=== PATIENT | male | born 1940 | race Caucasian/White ===

== ENCOUNTER 2021-06-18 09:42 | Outpatient (CLI) | payer MEDICARE, SELFPAY ==
--- NOTE | 2021-06-18 10:50 | ECG_ITS ---
Measurements Intervals [place] Rate: 58 P: 33 ME: 254 QRS: -27 QRSD: 112 T: 4 QT: 399 QTc: 393 Interpretive Statements SINUS BRADYCARDIA WITH SINUS ARRHYTHMIA WITH FIRST DEGREE AV BLOCK INTRAVENTRICULAR CONDUCTION DELAY VOLTAGE CRITERIA FOR LVH POOR R WAVE PROGRESSION, ANTERIOR LEADS BASELINE ARTIFACT- I, II, III, AVR, AVL, AVF, V1-V3 ABNORMAL ECG Electronically Signed On 06-18-2021 12:54:21 BODY TRIMMER UPHOLSTERER by Jose Dupont D.O.
[2021-06-18 11:24] LABS: Albumin Level 4.6 g/dL (3.5-5.1); Estimated Glomerular Filt Rate > 60; Glucose 96 mg/dL (65-110)
[2021-06-18 11:25] LABS: Urine Cotinine NEGATIVE
[2021-06-18 11:26] LABS: Hematocrit 42.5 % (42.0-52.0); Hemoglobin 14.8 g/dL (14.0-18.0)
[2021-06-18 11:28] LABS: Hemoglobin A1C 5.3 % (<5.7)
== END 2021-06-18 09:43 | disposition home or self-care (01) ==
PROVIDERS: PCP Family Medicine Sports Medicine; Visit Provider Specialist
DX: M25.552 Pain in left hip (principal); Z01.818 Encounter for other preprocedural examination; I45.9 Conduction disorder, unspecified; R94.31 Abnormal electrocardiogram [ECG] [EKG]
CPT/HCPCS: 80307; 82040; 82565; 82947; 83036; 85014; 85018; 93005

== ENCOUNTER 2021-07-03 14:23 | Observation (INO) | payer MEDICARE, SELFPAY ==
--- NOTE | 2021-06-18 09:50 | PC.NURSE ---
Report to the Outpatient Waiting Room, entrance under the green pavilion located off [facility], at time __10:00AM__ on date 07/02/21 . OR Time: ___12:00PM . - You and your visitor will be asked a series of questions to screen for COVID 19 for your protection. - A mask is required within the hospital. - Only one visitor is allowed at this time. Patient visitors will be guided where to wait when not with patient. Preoperative COVID Testing Requirements: No COVID Test needed if: (proof is required; if not received patient will have Rapid Test prior to entry) - Patient has received COVID Vaccine at least 14 days prior to procedure date or - Patient has positive COVID test result within last 90 days of surgery date. COVID Test needed if above criteria is not met If not COVID vaccinated a COVID test must be conducted within 72 hours of surgery and patient is asked to isolate self from time of testing until procedure. You will go to the [facility] Testing Site for your COVID testing. The [facility] [employer] [facility] is located at the corner of [address] [facility]. You will only be called if COVID results are positive and your surgeon may reschedule your elective surgery date. Patients may have clear liquids (water, carbonated beverages, clear teas, apple juice) until 3 hours prior to surgery with a maximum of 20 ounces. - No food from midnight until time of surgery 9:00AM - Infants may have breast milk until 4 hours before surgery, infant formula 6 hours prior to surgery. - Children will be allowed to drink immediately following surgery. If applicable, please bring a bottle or sippy cup to assist with drinking. Juice, water, soda, and popsicles are readily available. For infants on formula, please bring formula the day of surgery. Pacifiers are allowed. Take the following medications with a SIP of water the morning of surgery: AMLODIPINE Medications to discontinue per physician ALL VITAMINS/SUPPLEMENTS 3 DAYS PRE-OP, HOLD ALEVE PER MD Date to take last dose 06/28/21 Please no make-up, nail setswana, hairspray, perfume, deodorant, or body powder the day of surgery. No jewelry (including any body piercings) or valuables the day of surgery, leave them at home. Please take a shower or bath the night before, or the morning of, surgery with an antibacterial soap. Wear comfortable, loose fitting clothing. Children are encouraged to wear pajamas. - Jewelry must be removed prior to entering the operating room. Rings and piercings that are not removed may be cut off. - The hospital will not accept responsibility for valuables. - Please leave all valuables, including medications, at home the day of surgery. If you are going home after surgery, a licensed wheelchair van driver must drive you home. - NO public transportation without another adult. - We recommend that an adult stay with you for 24 hours following discharge. - We also recommend that you do not drive, make important decision, drink alcoholic beverages, or take any drugs that were not prescribed by your health care provider for at least 24 hours after your discharge time. For Pediatric surgeries, we recommend two adults accompany the child home (only one inside the building at this time). Follow any additional instructions given to you from your surgeon. Telephone instructions given to ___PATIENT & FRIEND and asked if any additional questions and then verbalized understanding. Patient advised to call surgeon office or pre surgery nurse liaison [phone] if any additional questions.
[2021-06-18 10:04] VITALS: BP 154/83; PULSE 63; RESP 18; TEMP 36.6; O2SAT 97; BMI 25.3
[2021-07-02] VITALS (17 sets, daily range): BP systolic 141–173; BP diastolic 62–84; PULSE 55–81; RESP 10–18; TEMP 36.2–36.7; O2SAT 91–100
[2021-07-02] MEDS: ACETAMINOPHEN 500 MG TABLET 1000 MG PO (10:21)
[2021-07-02] MEDS: LACTATED RINGERS 1,000 ML 30 ML IV CONT (10:38)
[2021-07-02] MEDS: TRANEXAMIC ACID 1,000MG/ISO100 1,000 MG/100 ML BAG 200 MG IVPB (10:54)
--- NOTE | 2021-07-02 11:27 | SUR.PREOP ---
pt informed slight delay in procedure
--- NOTE | 2021-07-02 11:36 | WPDANESEPPF ---
Anes - Initial Pre Proc Eval Procedure: Operation Date: 07/02/21 12:00 Proposed Procedures p Left Total Hip Arthroplasty - Ashutosh Soto MD Date/Time: 07/02/21 11:36 Surgeon: Ashutosh Soto MD Pre Op Diagnosis: Left Hip Pain Patient Data Age: 80 Gender: M Height: 1.88 m Weight: 88.4 kg Last Vital Signs Temp 36.5 C 07/02/21 10:40 Pulse 68 07/02/21 10:40 Resp 16 07/02/21 10:40 BP 152/72 H 07/02/21 10:40 Pulse Ox 98 07/02/21 10:40 Allergies Allergy/AdvReac Type Severity Reaction Status Date / Time No Known Allergies Allergy Unverified 07/02/21 10:15 Home Medications Medication Instructions Recorded Confirmed Type amlodipine 5 mg PO QAM 06/18/21 07/02/21 History atorvastatin 10 mg PO DAILY 06/18/21 07/02/21 History finasteride 5 mg PO DAILY 06/18/21 07/02/21 History memantine 10 mg PO DAILY 06/18/21 07/02/21 History multivitamin [Multiple Vitamin] 1 tablet PO DAILY 06/18/21 07/02/21 History naproxen sodium [Aleve] 440 mg PO BID PRN 06/18/21 07/02/21 History tamsulosin 0.4 mg PO DAILY 06/18/21 07/02/21 History Patient hx anesthesia problems: none Family hx anesthesia problems: none Results Review: All pre-operative results and documents have been reviewed as part of the pre-operative evaluation. [facility] Past Medical History Medical History Dementia Hyperlipidemia Hypertension Social History Social History Smoking packs per day: 0.5 Smoking cigarettes per day: 10.0 Years smoked: 10 Smoking pack-years: 5.00 Smoking status: Former smoker Tobacco type: cigarettes Smoking end date: 02/01/70 Alcohol intake: current Drinks per week: 6 Substance use: never Living arrangements: alone Spiritual care concerns: No Anes - Eval Final PreProcedure Day of Procedure 07/02/21 11:36 Patient weight: normal Heart: regular rate and rhythm Lungs: clear to auscultation Airway: Mallampati scale class II Neurological: other (alert) Last oral intake: >/= 8 hours ASA classification: III Emergent: no Anesthetic plan: proceed Anesthesia type and monitoring: general ETT and standard monitoring Results Review: All pre-operative results and documents have been reviewed as part of the pre-operative evaluation. Informed Consent: The patient's anesthetic plan and its attendant risks and benefits were discussed with the patient/family/POA. Questions were solicited and answers provided to the satisfaction of the patient/family/POA.
--- NOTE | 2021-07-02 12:01 | WPDHPUPDATE1 ---
History and Physical Update Update Date/Time: 07/02/21 12:01 History and Physical has been reviewed, including an updated exam of the patient. There are NO changes in the patient's condition. Risks, benefits, and alternatives have been discussed and questions answered. Patient agrees to proceed with procedure.
[2021-07-02] MEDS: ceFAZolin 2 GM/D5W 50 ML 2 GM/50 ML BAG IVPB (12:44)
[2021-07-02] MEDS: TRANEXAMIC ACID 1,000 MG/10 ML AMPUL 1000 MG IV PUSH (14:31)
--- NOTE | 2021-07-02 14:58 | W.PM.PROC2 ---
Procedure Note - Detailed Date of Procedure 07/02/21 Pre-op Diagnosis Left Hip Pain with severe osteoarthritis Post-op Diagnosis same Procedure Performed Left Total Hip replacement with Florentin DuomobilitiUbisense implant Surgeon Ashutosh Soto MD Ball Point Splitter Ungacta Anesthesia general Description of Procedure The patient was identified and brought to the operating room and placed on the operating room table. After general anesthetic he was placed in the lateral decubitus position presenting the operative hip to the surgeon. An axillary roll was placed. All the bony landmarks were padded. The pegboard was used to position in a stable position. He was and sterilely prepped and draped. Surgical time in and time-out was performed we confirmed this was the correct patient and the correct size. He had received appropriate IV antibiotics as necessary for the procedure. All the equipment was available as necessary for the procedure. Once he was prepped and draped I outlined the surgical incision in the bony landmarks on the skin. Posterior approach was utilized. A 18 cm incision was made in a curvilinear fashion over the posterior 1/3 of the greater trochanter this was along the shaft of the femur and then curving posteriorly towards the posterior superior iliac spine. Incision was made with a 10 blade scalpel. Hemostasis was obtained throughout the case with electrocautery. Blunt dissection down to the fascia was done and the fascia was incised. The greater trochanteric bursa was seen. Just distal to this 1 could palpate the gluteus osmel insertion posterior to the incision. The gluteus osmel was then incised and spread. Charnley C retractor was placed taking care not to involve the sciatic nerve. The abductor tendons were identified and a Hayes elevator was used to separate them from the superior capsule. A Cobra was then placed in this interval and around the remaining anterior femoral neck. Some of the quadratus femoris was released. And excellent visualization of the capsule was obtained. The capsule was then T'd and tag sutures were placed and this open the joint. The femoral head was then visualized able. the hip was dislocated. No acetabular bleeding was seen. The ligamentum had been transected near the acetabular floor. A neck cut was then made using the guide for this system. The femur was then placed anterior to the acetabulum. A sharp Cobra was then placed in the superior anterior quadrant of the acetabulum just anterior at around the 2 o'clock position. This was used to help maintain the femoral retraction. The labrum was detached circumferentially around the acetabulum. A retractor was placed posteriorly and this gave 360? of acetabular exposure. The pulvenar was then removed with electrocautery. There was about a 2 mm ledge down to the acetabular floor. Using a Reamer 2 mm smaller than the head size we deepened the acetabulum. We then sequentially reamed up to a 62mm. A 62 trial was placed and this fit perfectly. We then placed a 62 mm acetabular shell. And drilled the superior hole and placed a 6.5 mm by 30 mm screw. This went in and was flush. We had good finger tight fit to the screw. The acetabular liner was then placed. And we confirmed that this was a good fit. We used the removal device to gently test the acetabular liner to see that we had gotten excellent fit. We also visualized circumferentially around the liner acetabular shell interface. Once we were convinced that the liner was well placed we prepared the femur. A Marcelo was used to find the canal and then the T-handled Reamer was used to open the canal. The broaches were used sequentially up to a 7. We planed the calcar and then did a trial reduction. There was 127 degree 0 neck length was the most appropriate. We had excellent fit and good stability. I was able to flex to 90 abduct to 45? and internally rotate 45? and the implant was still very stable.
[2021-07-02] MEDS: fentaNYL CITRATE INJ (*CRX) 100 MCG/2 ML VIAL 25 MCG IV PUSH ×2 (15:28→15:36)
--- NOTE | 2021-07-02 17:15 | WPDCN ---
Assessment and Plan Assessment and plan (1) Osteoarthritis of left hip: Code(s): M16.12 - Unilateral primary osteoarthritis, left hip Status: Acute Assessment and Plan: Postoperative day 0 status post left total hip arthroplasty. Wound care, pain control, DVT prophylaxis deferred to primary service. (2) Hypertension: Code(s): I10 - Essential (primary) hypertension Status: Acute Assessment and Plan: Blood pressures have been a bit elevated postoperatively, likely due to pain. Resume amlodipine and monitor closely. (3) Hyperlipidemia: Code(s): E78.5 - Hyperlipidemia, unspecified Status: Acute Assessment and Plan: Resume statin check LFTs in a.m.. (4) Benign prostatic hyperplasia: Code(s): N40.0 - Benign prostatic hyperplasia without lower urinary tract symptoms Status: Acute Assessment and Plan: Continue tamsulosin and finasteride. Monitor for postoperative urinary retention. (5) Short-term memory loss: Code(s): R41.3 - Other amnesia Status: Acute Assessment and Plan: Continue memantine. Additional Plan Thank you for allowing us to participate in this patient's care. Please do not hesitate to contact us with any questions. Supervising physician for this medical consultation is Dr. Torrie Argueta. HPI Data of Consult Date/Time: 07/02/21 17:15 Requesting Physician: Ashutosh Soto MD Primary Care Provider: Kentrell JimenezMD Consult Narrative Narrative: This is a very pleasant 80-year-old male with hypertension, hyperlipidemia, benign prostatic hyperplasia, and osteoarthritis whom the hospitalist service has been consulted for postoperative management of his medical conditions. He has had longstanding pain in his left hip not amenable to conservative outpatient treatment and thus he elected for replacement today. His surgery was performed under general anesthesia with no immediate complications documented an estimated blood loss of 200 mL. He is doing well postoperatively with minimal discomfort around the operative site. His blood pressures have been elevated postoperatively but other than that his vital signs have been stable. He denies fever, chills, sweats, chest pain, shortness of breath, nausea, and vomiting. He also denies paresthesias, skin color, temperature changes distal to the surgical site. Upon discharge he will be going home in his friend will be staying with him for several days to make sure that he is safe. Review of Systems Review of Systems: Twelve systems were reviewed. No recent cold or flu symptoms. No sick contacts. No history of venous thromboembolism. He reports that his chronic medical conditions are well controlled on home medications. He has never had issues with urinary retention though he has not yet urinated since surgery. Except as documented, all other systems were reviewed and are negative. [facility] Past Medical History Medical History (Updated 07/02/21 @ 21:11 by Tatianna Pereyra PA-C) Benign prostatic hyperplasia Hyperlipidemia Hypertension Short-term memory loss Surgical History Surgical History (Updated 07/02/21 @ 21:09 by Tatianna Pereyra PA-C) History of arthroscopy of right knee History of cataract extraction History of lumbar discectomy History of total left hip arthroplasty (07/02/21) Family History Family History (Updated 07/02/21 @ 21:09 by Tatianna Pereyra PA-C) Other Hypertension Social History Social History (Updated 07/02/21 @ 21:10 by Tatianna Pereyra PA-C) Social History: Surrogate decision maker: Chevy Cuba, son. Code status: Full code. Smoking packs per day: 0.5 Smoking cigarettes per day: 10.0 Years smoked: 10 Smoking pack-years: 5.00 Smoking status: Former smoker Tobacco type: cigarettes Smoking end date:
--- NOTE | 2021-07-02 18:17 | PC.NURSE ---
This patient, Sussy Cuba, was admitted to Medical Room 251-01. Patient/family oriented to hospital policies and general routines including ID bracelet, bed and alarms, visiting hours, pain management, procedures, bathroom and other care routines, personal items, smoking policy, room service/diet, and visiting hours. Information on how to activate the Rapid Response Team has been discussed. Patient/Family are encouraged to report perceived risks to care and to ask questions if they do not understand what they are told or what they should do.
[2021-07-02 18:32] LABS: Hematocrit 41.7 % (42.0-52.0); Hemoglobin 14.2 g/dL (14.0-18.0)
[2021-07-02] MEDS: SENNA/DOCUSATE SODIUM TABLET 2 TAB PO (18:59)
[2021-07-02] MEDS: ASPIRIN 325 MG ENTERIC TABLET PO (20:52)
--- NOTE | ~2021-07-03 | XR_ITS ---
EXAMINATION: XR hip LT 2V w AP pelvis DATE: 07/02/2021 16:03 INDICATION: Left hip arthroplasty. Postop. TECHNIQUE: An anteroposterior view of the pelvis on 2 radiographs and 2 views of left hip were obtain ed. COMPARISON: None. FINDINGS: There is a total left hip arthroplasty in near-anatomic alignment. No fracture. There is mo derate right hip osteoarthritis. There is severe lumbar spondylosis. There is gas in the soft tissues around left hip, consistent with recent surgery. IMPRESSION: 1. Total left hip arthroplasty in near-anatomic alignment. 2. Moderate right hip osteoarthritis. Reviewed, dictated and finalized at location A. [employer]
[2021-07-03 03:45] VITALS: BP 161/71; PULSE 76; RESP 18; TEMP 36.5; O2SAT 95
[2021-07-03 05:37] LABS: Basophils Percent Auto 0.1 % (0.2-1.2); Hematocrit 36.3 % (42.0-52.0); Hemoglobin 12.5 g/dL (14.0-18.0); Immature Granulocyte Absolute 0.06 K/mm3 (0.00-0.031); Immature Granulocyte Percent A 0.5 % (0-0.5); Lymphocytes Absolute Auto 1.68 K/mm3 (0.9-3.2); Lymphocytes Percent Auto 12.9 % (18.3-44.2); Mean Corpuscular HGB Conc 34.4 g/dl (32-36); Mean Corpuscular Hemoglobin 32.6 pg (26-34); Mean Corpuscular Volume 94.8 fl (80-100); Mean Platelet Volume 11.2 fl (7.4-10.4); Monocytes Absolute Auto 1.2 K/mm3 (0.1-0.6); Monocytes Percent Auto 9.1 % (2.6-8.5); Neutrophils Absolute Auto 10.1 K/mm3 (1.3-6.7); Neutrophils Percent Auto 77.4 % (45.5-73.1); Platelet Count Result 163 k/mm3 (150-375); Red Blood Count 3.83 M/mm3 (4.6-6.20); Red Cell Distribution Width 12.6 % (11.5-14.5); White Blood Count 13.1 K/mm3 (4.5-10.0)
[2021-07-03 05:42] LABS: Anion Gap 9 mmol/L (8-16); Blood Urea Nitrogen 21 mg/dL (9-20); Calcium 8.9 mg/dL (8.4-10.2); Carbon Dioxide 29 mmol/L (22-30); Chloride 99 mmol/L (98-107); Estimated CRCL calculation 72 ml/min; Estimated Glomerular Filt Rate > 60; Glucose 123 mg/dL (65-110); Magnesium 2.1 mg/dL (1.6-2.3); Potassium 3.9 mmol/L (3.4-5.0); Sodium 137 mmol/L (137-145)
[2021-07-03 05:43] LABS: Alanine Aminotransferase 21 U/L (4-50); Albumin Level 3.9 g/dL (3.5-5.1); Alkaline Phosphatase 82 U/L (38-126); Aspartate Amino Transferase 36 U/L (17-59); Bilirubin,Total 0.9 mg/dL (0.2-1.3)
[2021-07-03] MEDS: HYDROcodone/acetaminophen (*CRX) 5-325 MG TABLET 1 TAB PO ×2 (06:53→23:39)
--- NOTE | 2021-07-03 07:20 | PCOTNOTE ---
Attempted OT evaluation, patient reports to much pain at this time, will follow and attempt at later time.
[2021-07-03] MEDS: SENNA/DOCUSATE SODIUM TABLET 2 TAB PO ×2 (09:07→17:29)
[2021-07-03] MEDS: polyethylene glycoL 3350 17 GM POWD.PACK PO (09:07)
[2021-07-03] MEDS: ASPIRIN 325 MG ENTERIC TABLET PO ×2 (09:07→20:15)
[2021-07-03] MEDS: ATORVASTATIN 10 MG TABLET PO (09:07)
[2021-07-03] MEDS: MULTIVITAMINS THERAPEUTIC TAB (*BKC) 1 TABLET PO (09:07)
[2021-07-03] MEDS: TAMSULOSIN HCL 0.4 MG CAPSULE PO (09:07)
[2021-07-03] MEDS: MEMANTINE 10 MG TABLET PO (09:07)
[2021-07-03] MEDS: FINASTERIDE 5 MG TABLET PO (09:07)
[2021-07-03] MEDS: amLODIPine BESYLATE 5 MG TABLET PO (09:07)
--- NOTE | 2021-07-03 09:33 | WPDANESPN ---
Anes - Prog Note Post-Op Date/Time: 07/03/21 09:33 Cardiovascular status: normal Respiratory status: normal Airway patency: baseline Mental status: baseline Post-Op hydration status: normal Vital Signs: Last Vital Signs Temp 36.5 C 07/03/21 03:45 Pulse 76 07/03/21 03:45 Resp 18 07/03/21 03:45 BP 161/71 H 07/03/21 03:45 Pulse Ox 95 07/03/21 03:45 Pain Score (VAS): 0 I/O: Intake & Output 07/02/21 07/03/21 07/03/21 23:59 07:59 15:59 Intake Total 50 50 360 Output Total 300 Balance -250 50 360 Laboratory Tests 07/03/21 05:06 07/03/21 05:06 07/02/21 07/02/21 07/03/21 10:07 18:13 05:06 WBC 13.1 H RBC 3.83 L Hgb 14.2 12.5 L Hct 41.7 L 36.3 L MCV 94.8 MCH 32.6 MCHC 34.4 RDW 12.6 Plt Count 163 MPV 11.2 H Immature Gran % (Auto) 0.5 Neut % (Auto) 77.4 H Lymph % (Auto) 12.9 L [place] % (Auto) 9.1 H Eos % (Auto) 0.0 Baso % (Auto) 0.1 L Lymph # (Auto) 1.68 [place] # (Auto) 1.2 H Eos # (Auto) 0.0 Baso # (Auto) 0.0 Abs Immat Gran (auto) 0.06 H Absolute Neuts (auto) 10.1 H Absolute Nucleated RBC 0.0 Nucleated RBC % 0.0 Sodium Potassium Chloride Carbon Dioxide Anion Gap BUN Creatinine Estim Creat Clear Calc Estimated GFR Glucose Calcium Magnesium Total Bilirubin Direct Bilirubin AST ALT Alkaline Phosphatase Total Protein Albumin Blood Type A Positive Antibody Screen Negative 07/03/21 05:06 WBC RBC Hgb Hct MCV MCH MCHC RDW Plt Count MPV Immature Gran % (Auto) Neut % (Auto) Lymph % (Auto) [place] % (Auto) Eos % (Auto) Baso % (Auto) Lymph # (Auto) [place] # (Auto) Eos # (Auto) Baso # (Auto) Abs Immat Gran (auto) Absolute Neuts (auto) Absolute Nucleated RBC Nucleated RBC % Sodium 137 Potassium 3.9 Chloride 99 Carbon Dioxide 29 Anion Gap 9 BUN 21 H Creatinine 0.80 Estim Creat Clear Calc 72 Estimated GFR > 60 Glucose 123 H Calcium 8.9 Magnesium 2.1 Total Bilirubin 0.9 Direct Bilirubin 0.0 AST 36 ALT 21 Alkaline Phosphatase 82 Total Protein 6.0 L Albumin 3.9 Blood Type Antibody Screen Post-procedural complaints: none Patient Feedback: Patient satisfied with anesthetic care.
[2021-07-03 10:00] VITALS: BP 123/60; PULSE 79; RESP 18; TEMP 36.1; O2SAT 95
--- NOTE | 2021-07-03 10:11 | PM.IMPN ---
Progress Note: A&P Assessment and Plan (1) Osteoarthritis of left hip: Code(s): M16.12 - Unilateral primary osteoarthritis, left hip Status: Acute Assessment and Plan: Postoperative day 1 status post left total hip arthroplasty. -continue aspirin 325 every 12 hours for DVT prophylaxis per ortho -will adjust pain medications since his pain is not controlled. Will do my 5 mg of Richmond for pain 4-6, 7.5 mg a Richmond for pain 7-10, and morphine for uncontrolled pain. May adjust further -continue PT and OT (2) Hypertension: Code(s): I10 - Essential (primary) hypertension Status: Acute Assessment and Plan: Last blood pressure 123/60 -continue amlodipine (3) Hyperlipidemia: Code(s): E78.5 - Hyperlipidemia, unspecified Status: Acute Assessment and Plan: Continue Lipitor -LFTs are normal (4) Benign prostatic hyperplasia: Code(s): N40.0 - Benign prostatic hyperplasia without lower urinary tract symptoms Status: Acute Assessment and Plan: Chronic, no acute issues noted -Continue tamsulosin and finasteride (5) Short-term memory loss: Code(s): R41.3 - Other amnesia Status: Acute Assessment and Plan: Continue memantine -appears to be alert oriented today (6) Postoperative anemia: Code(s): D64.9 - Anemia, unspecified Status: Acute Assessment and Plan: Hgb 12.5 this morning, slightly lower than yesterday -No signs of blood loss -continue to monitor Additional Plan Thank you for allowing us to participate in this patient's care. Please do not hesitate to contact us with any questions. Time Spent With Patient Time with patient: 25 - 35 minutes Subjective Date/time seen: 07/03/21 10:11 Interval history: Pt is a 80-year-old male here for left hip arthroplasty. Patient was seen today and states his pain is an 8/10. He is sitting up in the chair and tolerating it pretty well but states it is still pretty painful. Earlier he was at a 10/10 and got a [place] which only helped him a little bit. He has no numbness, tingling, nausea, vomiting, diarrhea, constipation, chest pain or shortness of breath. He thought he had chills overnight or maybe he was just cold. No fevers. Last BM friday Review of Systems Review of Systems: All systems reviewed & are unremarkable except as noted in HPI and below Exam Narrative: General: Well developed well nourished patient in NAD HEENT: normocephalic Neck: supple Neuro: Alert and oriented x4 CV:RRR Resp:CTA Abd: Soft, non distended. No pain to palpation. Positive bowel sounds Extremities: Left hip with bandage attached without erythema, discharge, or bleeding. Sensation and pulses intact. Objective Data Vital Signs Vital Signs: Vital Signs - 24 hr 07/02/21 10:40 07/02/21 15:15 07/02/21 15:30 Temperature 97.7 F 97.8 F Pulse Rate 68 60 57 L Respiratory Rate 16 10 L 17 Blood Pressure 152/72 H 144/62 H 161/67 H Pulse Oximetry 98 100 100 07/02/21 15:45 07/02/21 16:00 07/02/21 16:15 Temperature Pulse Rate 64 56 L 55 L Respiratory Rate 17 12 14 Blood Pressure 161/67 H 145/74 H 159/72 H Pulse Oximetry 100 95 94 07/02/21 16:30 07/02/21 16:45 07/02/21 17:00 Temperature 98.1 F Pulse Rate 56 L 56 L 57 L Respiratory Rate 11 L 14 12 Blood Pressure 152/82 H 157/77 H 160/78 H Pulse Oximetry 95 99 92 07/02/21 17:15 07/02/21 17:30 07/02/21 18:00 Temperature 97.2 F L Pulse Rate 61 58 L 64 Respiratory Rate 15 13 14 Blood Pressure 166/82 H 165/75 H 173/73 H Pulse Oximetry 98 98 99 07/02/21 18:10 07/02/21 18:15 07/02/21 18:45 Temperature 97.5 F L 97.4 F L Pulse Rate 74 80 Respiratory Rate 14 14 Blood Pressure 162/84 H 156/76 H Pulse Oximetry 99 99 97 07/02/21 19:45 07/02/21 23:45 07/03/21 03:45 Temperature 97.8 F 97.9 F 97.7 F Pulse Rate 81 77 76 Respiratory Rate 18 18 18 Blood Pressure 152/76 H
[2021-07-03] MEDS: HYDROcodone/acetaminophen (*CRX) 7.5-325 MG TABLET 1 TAB PO ×2 (11:52→20:15)
[2021-07-03 14:00] VITALS: BP 121/63; PULSE 76; RESP 18; TEMP 36.4; O2SAT 98
[2021-07-03] MEDS: MORPHINE SULFATE (*CRX) 2 MG/ML INJ 1 MG IV PUSH (14:18)
[2021-07-03 18:00] VITALS: BP 125/61; PULSE 80; RESP 16; TEMP 37.2; O2SAT 97
[2021-07-03 19:45] VITALS: BP 138/64; PULSE 80; RESP 18; TEMP 36.8; O2SAT 93
[2021-07-03 20:00] VITALS: PULSE 80; RESP 18; O2SAT 93
[2021-07-04 05:17] VITALS: BP 156/71; PULSE 77; RESP 18; TEMP 36; O2SAT 95
[2021-07-04 05:59] LABS: Hematocrit 34.9 % (42.0-52.0); Hemoglobin 11.8 g/dL (14.0-18.0); Mean Corpuscular HGB Conc 33.8 g/dl (32-36); Mean Corpuscular Hemoglobin 32.3 pg (26-34); Mean Corpuscular Volume 95.6 fl (80-100); Mean Platelet Volume 11.3 fl (7.4-10.4); Platelet Count Result 138 k/mm3 (150-375); Red Blood Count 3.65 M/mm3 (4.6-6.20); Red Cell Distribution Width 12.5 % (11.5-14.5); White Blood Count 10.4 K/mm3 (4.5-10.0)
[2021-07-04 06:00] LABS: Anion Gap 6 mmol/L (8-16); Blood Urea Nitrogen 22 mg/dL (9-20); Calcium 8.6 mg/dL (8.4-10.2); Carbon Dioxide 28 mmol/L (22-30); Chloride 100 mmol/L (98-107); Estimated CRCL calculation 72 ml/min; Estimated Glomerular Filt Rate > 60; Glucose 106 mg/dL (65-110); Potassium 3.6 mmol/L (3.4-5.0); Sodium 134 mmol/L (137-145)
[2021-07-04] MEDS: SENNA/DOCUSATE SODIUM TABLET 2 TAB PO (08:47)
[2021-07-04] MEDS: MEMANTINE 10 MG TABLET PO (08:47)
[2021-07-04] MEDS: MULTIVITAMINS THERAPEUTIC TAB (*BKC) 1 TABLET PO (08:48)
[2021-07-04] MEDS: TAMSULOSIN HCL 0.4 MG CAPSULE PO (08:48)
[2021-07-04] MEDS: amLODIPine BESYLATE 5 MG TABLET PO (08:48)
[2021-07-04] MEDS: FINASTERIDE 5 MG TABLET PO (08:48)
[2021-07-04] MEDS: ASPIRIN 325 MG ENTERIC TABLET PO (08:48)
[2021-07-04] MEDS: ATORVASTATIN 10 MG TABLET PO (08:48)
[2021-07-04] MEDS: HYDROcodone/acetaminophen (*CRX) 5-325 MG TABLET 1 TAB PO (08:51)
[2021-07-04] MEDS: polyethylene glycoL 3350 17 GM POWD.PACK PO (08:51)
--- NOTE | 2021-07-04 10:41 | PM.IMPN ---
Progress Note: A&P Assessment and Plan (1) Osteoarthritis of left hip: Code(s): M16.12 - Unilateral primary osteoarthritis, left hip Status: Acute Assessment and Plan: Postoperative day 2 status post left total hip arthroplasty. -continue aspirin 325 every 12 hours for DVT prophylaxis per ortho -continue pain medications -Okay to discharge from a medical standpoint (2) Hypertension: Code(s): I10 - Essential (primary) hypertension Status: Acute Assessment and Plan: Last blood pressure 156/71 -continue amlodipine (3) Hyperlipidemia: Code(s): E78.5 - Hyperlipidemia, unspecified Status: Acute Assessment and Plan: Continue Lipitor -LFTs are normal (4) Benign prostatic hyperplasia: Code(s): N40.0 - Benign prostatic hyperplasia without lower urinary tract symptoms Status: Acute Assessment and Plan: Chronic, no acute issues noted -Continue tamsulosin and finasteride (5) Short-term memory loss: Code(s): R41.3 - Other amnesia Status: Acute Assessment and Plan: Continue memantine -appears to be alert oriented today (6) Postoperative anemia: Code(s): D64.9 - Anemia, unspecified Status: Acute Assessment and Plan: Hgb 11.8 slightly lower than yesterday -No signs of blood loss, no bruising or hematoma (7) Thrombocytopenia: Code(s): D69.6 - Thrombocytopenia, unspecified Status: Acute Assessment and Plan: slightly low today 138, low normal on admission -f/u with pcp, should correct itself after post-op state. -He is to monitor for signs of bleeding at home Additional Plan Thank you for allowing us to participate in this patient's care. Please do not hesitate to contact us with any questions. Subjective Date/time seen: 07/04/21 10:41 Interval history: Pt is a 80-year-old male here for left hip arthroplasty. Patient was seen today and states his pain is much better and tolerable. he was able to walk the halls. He has no numbness, tingling, nausea, vomiting, diarrhea, constipation, chest pain or shortness of breath. No fevers. Last BM friday Exam Narrative: General: Well developed well nourished patient in NAD HEENT: normocephalic Neck: supple Neuro: Alert and oriented x4 CV:RRR Resp:CTA Abd: Soft, non distended. No pain to palpation. Positive bowel sounds Extremities: Left hip with bandage attached without erythema, discharge, or bleeding. Sensation and pulses intact. Objective Data Vital Signs Vital Signs: Vital Signs - 24 hr 07/03/21 14:00 07/03/21 18:00 07/03/21 19:45 Temperature 97.5 F L 98.9 F 98.2 F Pulse Rate 76 80 80 Respiratory Rate 18 16 18 Blood Pressure 121/63 125/61 138/64 Pulse Oximetry 98 97 93 07/03/21 20:00 07/04/21 05:17 Temperature 96.8 F L Pulse Rate 80 77 Respiratory Rate 18 18 Blood Pressure 156/71 H Pulse Oximetry 93 95 Intake/Output Intake/Output: Intake & Output 07/01/21 07/02/21 07/03/21 07/04/21 23:59 23:59 23:59 23:59 Intake Total 100 1505 680 Output Total 300 600 Balance -200 1505 80 Meds/Results Medications: Active Medications Generic Name Dose Route Start Last Admin Trade Name Freq PRN Reason Stop Dose Admin Hydrocodone Bitart/Acetaminophen 1 tab 07/02/21 12:10 07/04/21 08:51 Hydrocodone/Acetaminophen (*Crx) 5-325 Mg Tablet PO 1 tab Q3H PRN Administration Pain Rated 4-6 Hydrocodone Bitart/Acetaminophen 1 tab 07/03/21 10:12 07/03/21 20:15 Hydrocodone/Acetaminophen (*Crx) 7.5-325 Mg Tablet PO 1 tab Q6H PRN Administration Pain Rated 7-10 Amlodipine Besylate 5 mg 07/03/21 09:00 07/04/21 08:48 Amlodipine Besylate 5 Mg Tablet PO 5 mg QAM GENE Administration Aspirin 325 mg 07/02/21 21:00 07/04/21 08:48 Aspirin 325 Mg Enteric Tablet PO 325 mg Q12HR GENE Administration Atorvastatin Calcium 10 mg 07/03/21 09:
[2021-07-04] MEDS: HYDROcodone/acetaminophen (*CRX) 7.5-325 MG TABLET 1 TAB PO (12:06)
--- NOTE | 2021-07-04 13:30 | PCOTNOTE ---
On 07/04/21, the student, Sheba Shaw, provided care and [facility]. I have reviewed the student's documentation and agree with the findings.
--- NOTE | 2021-07-29 08:51 | PM.DS ---
DS: Admitting Diagnosis Discharge Date 07/04/21 Admitting Diagnosis Hip arthritis DS: Discharge Diagnosis Discharge Diagnosis (1) Osteoarthritis of left hip: Code(s): M16.12 - Unilateral primary osteoarthritis, left hip Status: Acute DS: Summary Hospital Course Hospital Course: Uneventful Time Spent with Patient Time attestation: Total time spent providing and/or coordinating discharge services: Exam Extrem: Right lower extremity: normal to inspection Left lower extremity: normal to inspection Other: dressing c+d calves NT bialt NV intact distally good cap refill DS: Data Data Completed and Pending Labs on day of discharge: h/h 11.8/34.9 Procedures/Treatments: total hip arthroplasty Discharge Plan Discharge Attending physician on discharge: Ashutosh Soto Consulting providers: Delia Proctor ; Tatianna Pereyra ; Torrie Argueta ; Roselia Julien ; Joe Gan V. Discharging Clinician: Ashutosh Soto Anticipated Discharge Date/Time: 07/04/21 12:57 Patient Disposition: Home, Self-Care Activity: may shower and no driving Diet: regular Wound Care Instructions: other - see discharge instructions Discharge Instructions: -Follow up with your primary care doctor as routinely scheduled. Call them (or come to ER) if you notice any blood loss, have new bleeding with brushing your teeth, chest pain, or worsening shortness of breath. All these can be a sign of blood loss. You need a repeat blood draw in one week to check your blood counts. This can be done anywhere and the results will be sent to your primary care doctor. See them for the results. -You have been prescribed narcotic pain medication. This pain medication can make you constipated. Utilize [id number] medications to relieve your constipation symptoms. Take only as directed as these medications can be addictive. Do not drive on these medications. Take Tylenol (acetaminophen) for mild pain. Do not exceed 4 g or 4000 mg of acetaminophen in 24 hours. Please note, Tylenol and [place] both have acetaminophen in it. -Worrisome signs and symptoms to come back to the ER for: chest pain, shortness of breath, fevers 100.4 or greater, progressive significant weakness, or any other worrisome symptom. -Keep bandage on incision until seen by Dr. Soto at follow up appointment. This bandage is waterproof. Therefore, you may shower with bandage on. Patient Instructions: Antibiotic Form Stand Alone Forms: General Discharge Information Follow-up/Referrals: Sandy,Kentrell Downing MD [Primary Care Provider] - Keep Reg. Scheduled Appt. Discharge Medications: New aspirin [Adult Low Dose Aspirin] 81 mg Tablet,Delayed Release (Dr/Ec) 81 mg PO BID Qty: 28 RF: 0 Continued atorvastatin 10 mg tablet 10 mg PO DAILY RF: 0 amlodipine 5 mg tablet 5 mg PO QAM RF: 0 tamsulosin 0.4 mg capsule 0.4 mg PO DAILY RF: 0 finasteride 5 mg tablet 5 mg PO DAILY RF: 0 memantine 10 mg tablet 10 mg PO DAILY RF: 0 multivitamin Tablet 1 tablet PO DAILY RF: 0 Held naproxen sodium [Aleve] 220 mg Capsule 440 mg PO BID PRN (Reason: Pain) RF: 0 Hold Instructions: Resume on 07/18/21. Hold until seen in office by Dr. Soto Other Ambulatory Orders: Complete Blood Count with Diff (Routine) Timeframe: 1 Week Location: Determined by Patient Ordered By: Delia Proctor Date of admission: 07/03/21 14:23 Primary Care Provider: BarbaraKentrell Admitting Provider: Ashutosh Soto Attending physician on admission: Ashutosh Soto Condition: Stable Quality VTE Prophylaxis VTE prophylaxis: mechanical ordered
== END 2021-07-04 13:39 | disposition home or self-care (01) ==
LOC: ANHSURGERY 14:32 → ANH2MED 14:32
PROVIDERS: Physician Assistant; Admitting Provider Specialist; PCP Family Medicine Sports Medicine; Visit Provider Specialist
PROC: (CPT 27130; principal; 2021-07-02 12:00)
DX: M16.0 Bilateral primary osteoarthritis of hip (principal); I10 Essential (primary) hypertension; E78.5 Hyperlipidemia, unspecified; N40.0 Benign prostatic hyperplasia without lower urinary tract symptoms; D64.89 Other specified anemias; D69.6 Thrombocytopenia, unspecified; Z87.891 Personal history of nicotine dependence
CPT/HCPCS: 27130; 36415; 73502; 80048; 80076; 80307; 82040; 82565; 82947; 83036; 83735; 85014; 85018; 85025; 85027; 86850; 86900; 86901; 93005; 96365; 96367; 96375; 97110; 97116; 97161; 97165; 97530; 97535; A9270; C1776; G0378; G0379; J0131; J0171; J0330; J0690; J1100; J1170; J1885; J2270; J2405; J2704; J2710; J2795; J3010; J7120